=== PATIENT | female | born 1960 | race Caucasian/White ===

== ENCOUNTER → 2017-12-14 | Outpatient (CLI) | payer MEDICARE, OTHER ==
[~2017-12-14] MED LIST: ADVIL100 M2 PO; ALPRAZOLAM 0.50.5 MG PO; APAP650; ASPIRIN325 PO; BENADRYL ALLERG25 MG PO; BENTYL 10 MG CA10 MG PO; EFFEXOR XR150 MG PO; FISH OIL 1,2001 EAC3 PO; FLAGYL500 MG PO; FLUZONE 2045 MCG/011; HYDROCODON-ACE1 EACH PO; IBUPROFEN 800800 M1 PO; LISINOPRIL10 MG PO; LISINOPRIL40 MG; LUNESTA3 MG PO; NEOMYC-POLYM-DEX5 ML OP; NORCO 5-325 TA1 EACH PO; NORCO 7.5-3251 EACH PO; NORVASC 5 MG TAB5 MG PO; NORVASC10 MG; NORVASC10 MG PO; ONDANSETRON HCL4 M3 PO; PERCOCET 5-3251 EACH PO; PNEUMOVAX25 MCG/0.5; PRINIVIL20 MG PO; PROTONIX40 M2 PO; PROVENTIL HFA6.7 G1 INH; SIMVASTATIN40 MG PO; SINGULAIR 10 MG10 MG PO; ZOCOR 10 MG TAB10 M1; ZOCOR40 MG PO; ZOFRAN4 MG PO; ZOLOFT PO; ZOLOFT100 MG PO; ZPAK PO
== END ==
LOC: M.RAD 12:56
DX: M85.89 Other specified disorders of bone density and structure, multiple sites (principal); I10 Essential (primary) hypertension; E78.5 Hyperlipidemia, unspecified; J45.909 Unspecified asthma, uncomplicated; Z78.0 Asymptomatic menopausal state; Z79.52 Long term (current) use of systemic steroids; Z79.899 Other long term (current) drug therapy